=== PATIENT | female | born 1980 | race Caucasian/White ===

== ENCOUNTER 2018-07-24 06:35 | Day surgery (SDC) | payer MEDICAID ==
[2018-07-24] MEDS ORDERED: SOD CHLORIDE 0.9% 1,000 ML IV (07:00)
[2018-07-24] MEDS ORDERED: BUPIVACAINE 0.5%/EPI (SDV) 30 ML INJ (07:43)
[2018-07-24] MEDS ORDERED: OXYCODONE/ACETAMINOPHEN (5/325) TAB PO (08:00)
[2018-07-24] MEDS ORDERED: MEPERIDINE 25 MG INJ IV (08:00)
[2018-07-24] MEDS ORDERED: ALBUTEROL 0.083% (NEB) 2.5 MG/3 ML AMP HHN (08:00)
[2018-07-24] MEDS ORDERED: FENTAnyl 50 MCG/ML VIAL IV ×2 (08:00)
[2018-07-24] MEDS ORDERED: METOCLOPRAMIDE 10 MG INJ IV (08:00)
[2018-07-24] MEDS ORDERED: HYDROmorphONE 1 MG/5 ML IV SYRINGE IV ×2 (08:00)
[2018-07-24] MEDS ORDERED: FENTAnyl 50 MCG/ML VIAL (08:39)
[2018-07-24] MEDS: CEFAZOLIN 2 GM/50 ML (PMX) 50 ML IVPB (08:41)
[2018-07-24] MEDS ORDERED: CEFAZOLIN 1 GM INJ (08:50)
[2018-07-24] MEDS ORDERED: SUCCINYLCHOLINE CHLORIDE 100 MG/5 ML SYG IV (08:50)
[2018-07-24] MEDS ORDERED: NEOSTIGMINE 3 MG/3 ML SYRINGE (08:50)
[2018-07-24] MEDS ORDERED: PROPOFOL 20 ML (08:50)
[2018-07-24] MEDS ORDERED: GLYCOPYRROLATE 0.4 MG INJ (08:50)
[2018-07-24] MEDS ORDERED: LIDOCAINE 100 MG SYRINGE (08:50)
[2018-07-24] MEDS ORDERED: ROCURONIUM 50 MG INJ (08:50)
[2018-07-24] MEDS ORDERED: HYDROCODONE/APAP (7.5/325) TAB PO ×2 (09:30→10:00)
[2018-07-24] MEDS: HYDROmorphONE 1 MG/5 ML IV SYRINGE IV (09:53)
[2018-07-24] MEDS: FENTAnyl 50 MCG/ML VIAL IV (09:56)
[2018-07-24] MEDS: ONDANSETRON 4 MG INJ IV (09:56)
[2018-07-24] MEDS: DIPHENHYDRAMINE 50 MG INJ IV (09:56)
== END 2018-07-24 11:02 | disposition home or self-care (01) ==
LOC: SDS 06:35
DX: D24.2 Benign neoplasm of left breast (principal)
CPT/HCPCS: 19120; 84703; 88307